=== PATIENT | female | born 1960 | race Caucasian/White ===

== ENCOUNTER 2018-02-17 12:19 | Inpatient (IN) | payer BC ==
[2018-02-17] MEDS ORDERED: diltiaZEM INJ 5 MG/ML VIAL IVP STA (12:38)
[2018-02-17] MEDS ORDERED: diltiaZEM INJ 125 MG in DEXTROSE 5% 100 ML IV STA (12:38)
[2018-02-17] MEDS ORDERED: ASPIRIN CHEW 81 MG TABLET PO STA (12:38)
[2018-02-17] MEDS ORDERED: diltiaZEM INJ 5 MG/ML VIAL ONE ×2 (12:44→21:35)
--- NOTE | 2018-02-17 12:45 | ED Physician Documentation ---
PD HPI CHEST PAIN - Stated complaint Stated Complaint: RAPID HR - Chief complaint Chief Complaint: Cardiac - History obtained from History obtained from: Patient - History of Present Illness Timing - onset: Last night Timing - onset during: Sleep Timing - duration: Hours Timing - details: Abrupt onset, Still present, Intermittant Pain level max: 7 Pain level now: 2 Quality: Pressure Location: Substernal Radiation: Jaw Improved by: Nothing Worsened by: Other (Nothing) Associated symptoms: Shortness of air, Palpitations. No: Diaphoresis, Nausea, Feeling faint / dizzy, Cough Similar symptoms before: Other (States had previous history of fast heartbeat but with only lasts for a few seconds the past years.) Recently seen: Clinic (Went to her doctor today and was sent to the emergency room.) - Additional information Additional information: 57-year-old female with history of migraine and tonsillectomy here with complaint of being awakened at 11 PM last night with fast heartbeat and skipping heartbeat associated with chest pressure at lower middle part of her chest radiating to her jaw. Patient stated she had this problem before for a few years and usually would only last a few seconds. Last week she noticed that they were more frequent and a little bit longer.Patient claimed that usually this happens when [place]. Patient stated she has never been workup for this problem before.Patient denies any trauma, travel, recent illness or immobility.Patient claims she drinks 2 cups of coffee a day. And she smokes small amount of cigarettes per day. Review of Systems Ten Systems: 10 systems reviewed and negative Constitutional: denies: Fever Cardiac: reports: Chest pain / pressure, Palpitations. denies: Pedal edema, Calf pain Respiratory: reports: Dyspnea. denies: Cough GI: denies: Abdominal Pain, Nausea, Vomiting Neurologic: denies: Generalized weakness PD PAST MEDICAL HISTORY - Past Medical History Psych: Anxiety - Past Surgical History Past Surgical History: Yes HEENT: Tonsil/Adenoidectomy - Present Medications Home Medications: Ambulatory Orders Medication Instructions Recorded Confirmed Dicyclomine [Bentyl] 10 mg PO QID #14 capsule 03/13/16 Ondansetron Odt [Zofran] 4 mg TL Q6H PRN #20 tablet 03/13/16 Rizatriptan Benzoate [Maxalt] 10 mg PO DAILY PRN 03/13/16 03/13/16 - Allergies Allergies/Adverse Reactions: Allergies Allergy/AdvReac Type Severity Reaction Status Date / Time Sulfa (Sulfonamide Allergy Rash Verified 03/13/16 22:34 Antibiotics) - Social History Does the pt smoke?: No Smoking Status: Never smoker Does the pt drink ETOH?: Yes Does the pt have substance abuse?: No - Immunizations Immunizations are current?: Yes PD ED PE NORMAL - Vitals Vital signs reviewed: Yes - General General: Alert and oriented X 3, No acute distress, Well developed/nourished - HEENT HEENT: EOMI, Moist mucous membranes, Pharynx benign - Neck Neck: Supple, no meningeal sign - Cardiac Cardiac: No murmur, No gallop, No rub, Strong equal pulses, Other (Tachycardia and irregularly irregular heart sounds. pvc monitor: Atrial fib with RVR between 144-164) - Respiratory Respiratory: No respiratory distress, Clear bilaterally - Abdomen Abdomen: Normal bowel sounds, Soft, Non tender, Non distended - Derm Derm: Normal color, Warm and dry - Extremities Extremities: No deformity, No tenderness to palpate, Normal ROM s pain, No edema - Neuro Neuro: Alert and oriented X 3, Normal speech - Psych Psych: Normal mood, Normal affect Results - Vitals Vitals: Vital Signs - 24 hr 02/17/18 02/17/18 02/17/18 12:26 12:35 12:45 Temperature 36.7 C Heart Rate 152 H 168 H Respiratory 16 15 Rate Blood Pressure 141/96 H 122/94 H Blood Pressure 122/94 H [Left] O2 Saturation 100 100 02/17/18 02/17/18 02/17/18 12:58 13:02 13:10 Temperature Heart Rate 128 H 120 H 120 H Respiratory 18 16 20 Rate Blood Pressure 118/78 111/86 H 135/75 H Blood Pressure [Left] O2 Saturation 100 100 100 02/17/18 13:34 Temperature Heart Rate 135 H Respiratory 14 Rate Blood Pressure 119/74 Blood Pressure [Left] O2 Saturation 100 Oxygen O2 Source Room air - EKG (time done) 1231 Rate: Rate (enter#) Rhythm: Atrial fibrillation [place]: Normal QRS: Normal Ischemia: Non specific changes Compare to prior EKG: Changed from prior EKG, Other (Previous EKG in February 08, 2015: Normal sinus rhythm rate of 62, normal axis, no ST elevation or depression.) - Labs Labs: Laboratory Tests 02/17/18 02/17/18 02/17/18 12:38 12:38 12:38 WBC 11.7 H RBC 4.47 Hgb 13.5 Hct 39.0 MCV 87.4 MCH 30.2 MCHC 34.5 RDW 13.3 Plt Count 258 MPV 7.5 L Neut # (Auto) 9.0 H Lymph # (Auto) 1.6 [place] # (Auto) 0.9 Eos # (Auto) 0.0 Baso # (Auto) 0.1 Absolute Nucleated RBC 0.00 Nucleated RBC % 0.0 Sodium 137 Potassium 3.8 Chloride 107 Carbon Dioxide 22 Anion Gap 8.0 BUN 13 Creatinine 0.6 Estimated GFR (MDRD) 103 Glucose 121 H Calcium 9.3 Magnesium 2.1 Total Bilirubin 0.9 AST 32 ALT 38 Alkaline Phosphatase 70 Troponin I 0.05 B-Natriuretic Peptide Total Protein 7.3 Albumin 4.5 Globulin 2.8 Albumin/Globulin Ratio 1.6 Lipase 27 TSH 02/17/18 02/17/18 12:38 12:38 WBC RBC Hgb Hct MCV MCH MCHC RDW Plt Count MPV Neut # (Auto) Lymph # (Auto) [place] # (Auto) Eos # (Auto) Baso # (Auto) Absolute Nucleated RBC Nucleated RBC % Sodium Potassium Chloride Carbon Dioxide Anion Gap BUN Creatinine Estimated GFR (MDRD) Glucose Calcium Magnesium Total Bilirubin AST ALT Alkaline Phosphatase Troponin I B-Natriuretic Peptide 306 H Total Protein Albumin Globulin Albumin/Globulin Ratio Lipase TSH 4.51 PD MEDICAL DECISION MAKING - ED course Complexity details: reviewed results, re-evaluated patient (1305 patient stated her chest discomfort is much decreased. After a bolus of diltiazem and a start of diltiazem drip at 5 mg/h patient's heart rate went down to 140s.1335Patient and family informed of test results and plan of admission which patient agreed to. pvc monitor atrial fib rate of 160. Instructed the nurse to increase the rate to 10 mg/h. Patient denies any chest pain or shortness of breath.), considered differential (New onset atrial fibrillation, hyperthyroid, electrolyte imbalance, ACS, PE), d/w patient, d/w family, d/w PMD (0906Case discussed with hospitalist Dr. Castro. He will admit the patient full admission to telemetry.), other (1444Patient being transported to the floor in no acute distress.) Departure - Departure Disposition: 66 [facility] DC/Xfer Clinical Impression: New onset atrial fibrillation Chest pain Qualifiers: Chest pain type: unspecified Qualified Code(s): R07.9 - Chest pain, unspecified Condition: Stable
[2018-02-17 12:46] LABS: BASOPHILS # (AUTO) 0.1 10^3/uL (0.0-0.1); BASOPHILS % (AUTO) 0.7 %; EOSINOPHILS % (AUTO) 0.2 %; HGB - HEMOGLOBIN 13.5 g/dL (12.0-16.0); LYMPHOCYTES # (AUTO) 1.6 10^3/uL (1.5-3.5); LYMPHOCYTES % (AUTO) 13.9 %; MEAN CORPUSCULAR HEMOGLOBIN 30.2 pg (27.0-31.0); MEAN CORPUSCULAR HGB CONC 34.5 g/dL (32.0-36.0); MEAN CORPUSCULAR VOLUME 87.4 fL (81.0-99.0); MEAN PLATELET VOLUME 7.5 fL (7.9-10.8); MONOCYTES # (AUTO) 0.9 10^3/uL (0.0-1.0); MONOCYTES % (AUTO) 7.9 %; NEUTROPHILS % (AUTO) 77.3 %; PLT - PLATELET COUNT 258 10^3/uL (130-450); RED BLOOD COUNT 4.47 10^6/uL (4.20-5.40); RED CELL DISTRIBUTION WIDTH 13.3 % (12.0-15.0); WHITE BLOOD COUNT 11.7 x10^3/uL (4.8-10.8)
[2018-02-17 13:08] LABS: ALBUMIN 4.5 g/dL (3.2-5.5); ALBUMIN/GLOBULIN RATIO 1.6 (1.0-2.2); BILIRUBIN,TOTAL 0.9 mg/dL (0.2-1.0); CALCIUM 9.3 mg/dL (8.5-10.3); CREATININE 0.6 mg/dL (0.4-1.0); MAGNESIUM 2.1 mg/dL (1.7-2.8); TOTAL PROTEIN 7.3 g/dL (6.7-8.2)
--- NOTE | 2018-02-17 13:22 | XRAY Report ---
Reason: chest pain Procedure Date: 02/17/2018 Accession Number: [id number] / [id number] Procedure: XR - Chest 1 View X-Ray CPT Code: 32452 FULL RESULT: EXAM: CHEST RADIOGRAPHY EXAM DATE: 02/17/2018 01:02 PM. CLINICAL HISTORY: Chest pain. COMPARISON: None. TECHNIQUE: 1 view. FINDINGS: Lungs/Pleura: No focal opacities evident. No pleural effusion. No pneumothorax. Mediastinum: Within exam limitations, the cardiomediastinal contour is normal. Other: None. IMPRESSION: Normal single view chest. RADIA
[2018-02-17] MEDS ORDERED: ACETAMINOPHEN 325 MG TABLET PO PRN (13:39)
[2018-02-17] MEDS ORDERED: ZOLPIDEM 5 MG TABLET PO PRN (13:39)
[2018-02-17] MEDS ORDERED: ONDANSETRON 4 MG/2 ML VIAL IVP PRN (13:39)
[2018-02-17] MEDS ORDERED: NITROGLYCERIN SL 0.4 MG TABLET SL PRN (13:39)
[2018-02-17] MEDS ORDERED: Rizatriptan Benzoate [Maxalt] 10 MG PO PRN ×2 (13:39→16:11)
[2018-02-17] MEDS ORDERED: oxyCODONE 5 MG TABLET PO PRN (13:39)
[2018-02-17] MEDS ORDERED: PROMETHAZINE 25 MG/1 ML VIAL IM PRN (13:39)
[2018-02-17] MEDS ORDERED: MORPHINE 2 MG/ML CARPUJECT IVP PRN (13:39)
[2018-02-17] MEDS ORDERED: PROCHLORPERAZINE 10 MG/2 ML VIAL IVP PRN (13:39)
--- NOTE | 2018-02-17 14:03 | HISTORY & PHYSICAL EXAMINATION ---
Chief Complaint - Chief Complaint Chief Complaint: Chest pain and shortness of breath History of Present Illness - Admitted From Admitted From:: Emergency Department - History Obtained From Records Reviewed: Yes History obtained from: Patient Exam Limitations: None - History of Present Illness HPI Comment/Other: Patient is a 57-year-old female with a past medical history significant for migraine headaches, osteoarthritis and anxiety who presented to the emergency department with a chief complaint of chest pain and shortness of breath. The patient states that over the last 8 years she will occasionally notice symptoms when she walks up a hill, up the stairs and sometimes when she is bending down to pick something up. She states that the symptoms are usually heart palpitations, chest discomfort and shortness of breath. She states in the past these symptoms last for no more than 2-3 minutes and resolve on their own. She states the worst that she is ever felt was in 2011 when she had an episode with chest pain, shortness of breath and palpitations which lasted for about 30 minutes. She states that she is never seek help from her primary care physician regarding the symptoms. She states that her father has atrial fibrillation, her mother has tachycardia and her son has Binpy-Rbqccybiu-Ohuxy syndrome. She states that on average the symptoms occur once or twice a month and again do not last longer than a couple of minutes. She states that this month she has had 6 episodes including a few when she was sleeping at night that woke her from her sleep. She states that during these episodes she was having heart palpitations, shortness of breath and chest pain. Again she states that these episodes lasted just a few minutes. She states that yesterday when she went to work she did not feel well all day. She thought that she may be getting a cold. She states that last night at 11 PM she awoke from her sleep and again was having palpitations, shortness of breath and chest pain. She states that the chest pain was a 8 out of 10 and initially located across her chest. She states later it radiated to her back and up into her jaw. She denies any diaphoresis or nausea associated with the chest pain. She does admit to shortness of breath associated with the chest pain. She states that the symptoms persisted through the night. She states that they became worse with exertion. She states that she tried to move around and this was not helping the symptoms. She states eventually she was able to get back to sleep and then woke up this morning and symptoms persisted. She states that her symptoms were worse when she lie flat and when she exerted herself. She states that she took a Advil and her migraine medication but none of this helped so she ended up going to her primary care physician's office. The patient's primary care physician then sent the patient to the emergency department as he found that her heart rate was in atrial fibrillation. She states that over the last month she has been very stressed and has been smoking 1-3 cigarettes a day which is not normal for her. Aside from this there is not been any major changes to any medications or her lifestyle. She does admit to several episodes of diarrhea this morning. The patient denies any headaches, blurred vision, runny nose, sore throat, dizziness, syncope, difficulty swallowing, increased lower extremity swelling, abdominal pain, nausea, vomiting, constipation, urinary urgency, urinary frequency, dysuria, increased lower extremity swelling, joint pain, muscle aches, back pain, neck stiffness, recent unintentional weight loss, changes in her appetite, skin changes, skin rash, polyuria, polydipsia, night sweats or any focal neurologic deficits. On presentation to the emergency department the patient was afebrile and tachycardic with heart rate of 168 blood pressure was 141/96 and she was not in any respiratory distress and saturating well on room air. The patient underwent routine lab work which revealed a mild leukocytosis of 11.7. The patient's blood chemistry was all within normal limits. The patient's BNP was mildly elevated at 306. The patient's TSH was 4.51. The patient's troponin was 0.05. The patient's EKG revealed atrial fibrillation with a rapid ventricular rate but no ST elevations noted. The patient was given 10 mg of IV diltiazem and placed on a diltiazem drip in the emergency department. Patient's heart rate initially improved to the 110s but then quickly increased back up to the 140s. The patient had to be titrated on her diltiazem drip up to 15 mg by the time she was admitted. The patient was admitted for atrial fibrillation with rapid ventricular rate to the intensive care unit on a diltiazem drip. History - Past Medical History Cardiovascular: reports: None Respiratory: reports: None Neuro: reports: Migraines Endocrine/Autoimmune: reports: None GI: reports: None [employer] WARE[employer]SE AGENT: reports: None : reports: None HEENT: reports: None Psych: reports: Anxiety Musculoskeletal: reports: Osteoarthritis Derm: reports: None MRSA Hx?: No - Past Surgical History HEENT: reports: Tonsil/Adenoidectomy - Family & Social History Family History Comment/Other: Father has atrial fibrillation. Mother has tachycardia. Son has Flwwy-Nmhqwzhry-Zdscu. Sister, brother and father have descending aortic aneurysms. No family history of cancer or coronary artery disease. Living arrangement: At home Living Situation: With family Social History Notes: The patient lives in [place] with her and daughter. She is originally from [place] and moved up to [facility] in 2011. She has 4 children. 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 She states that she smoked for a short period of time in her 20s and then did not smoke until just about a month ago when she started smoking 1-3 cigarettes a day to relieve stress. The patient states that she has been under a lot of stress recently but would not elaborate on this. She rarely drinks alcohol and rarely smokes marijuana and she denies any illicit drug use. - POLST Patient has POLST: No POLST Status: Full Code Meds/Allgy - Home Medications Home Medications: Ambulatory Orders Medication Instructions Recorded Confirmed Dicyclomine [Bentyl] 10 mg PO QID #14 capsule 03/13/16 Ondansetron Odt [Zofran] 4 mg TL Q6H PRN #20 tablet 03/13/16 Rizatriptan Benzoate [Maxalt] 10 mg PO DAILY PRN 03/13/16 03/13/16 - Allergies Allergies/Adverse Reactions: Allergies Allergy/AdvReac Type Severity Reaction Status Date / Time Sulfa (Sulfonamide Allergy Rash Verified 03/13/16 22:34 Antibiotics) tramadol Allergy Rash Verified 02/17/18 14:42 Review of Systems - Other Findings Other Findings: A comprehensive review of systems was performed the pertinent positives and negatives are stated above in the HPI and the remainder of the review of systems is negative. Prior Level of Functionality: Completely independent with her activities of daily living Exam - Vital Signs Reviewed Vital Signs: Yes Vital Signs: Vital Signs x48h Temp Pulse Resp BP BP Pulse Ox 02/17/18 13:52 129 H 17 108/87 H 100 02/17/18 13:34 135 H 14 119/74 100 02/17/18 13:10 120 H 20 135/75 H 100 02/17/18 13:02 120 H 16 111/86 H 100 02/17/18 12:58 128 H 18 118/78 100 02/17/18 12:45 122/94 H 02/17/18 12:35 168 H 15 122/94 H 100 02/17/18 12:26 36.7 C 152 H 16 141/96 H 100 - Physical Exam General Appearance: positive: Alert, Anxious Eyes Bilateral: positive: Normal inspection, PERRL, No lid inflammation, Conjunctivae nml, No scleral icterus ENT: positive: ENT inspection nml, Pharynx nml, No signs of dehydration. negative: Purulent nasal drainage, Pharyngeal erythema, Oral lesions Neck: positive: Nml inspection, Thyroid nml, No JVD, Trachea midline. negative: Lymphadenopathy (R), Lymphadenopathy (L), Carotid bruit, Tracheal deviation Respiratory: positive: Chest non-tender, No respiratory distress, Breath sounds nml. negative: Wheezes, Rales, Rhonchi Cardiovascular: positive: No murmur, No gallop, Irregularly irregular, Tachycardia Peripheral Pulses: positive: 2+ Abdomen: positive: Non-tender, No organomegaly, Nml bowel sounds, No distention Back: positive: Nml inspection. negative: CVA tenderness (R), CVA tenderness (L) Skin: positive: Color nml, No rash, Warm, Dry. negative: Diaphoresis, Pallor Extremities: positive: Non-tender, Full ROM, Nml appearance, No pedal edema Neurologic/Psychiatric: positive: Oriented x3, CN's nml (2-12), Motor nml, Sensation nml, Mood/affect nml Conclusion/Plan - Problem List (1) Atrial fibrillation with rapid ventricular response Conclusion/Plan: Patient presented with chest pain, shortness of breath and palpitations. The patient has been having the symptoms for the last 8 years 1 or 2 times a month but they have never lasted more than 30 minutes. This time symptoms persisted since 11 PM yesterday night to the time the patient arrived to the emergency department today. The patient was found to be in atrial fibrillation with a rapid ventricular rate of 160. Patient was given a dose of IV diltiazem and placed on diltiazem drip in the emergency department. Despite being on 15 mg diltiazem drip patient's heart rate continues to be in the 130s and 140s. The patient's TSH was normal and initial troponin was 0.05. Patient's EKG did not show any ST elevations. Patient is being admitted to the intensive care unit for rate control of her atrial fibrillation on a diltiazem drip. The patient's [id number] score is 1 giving her a stroke risk of 0.6 %/year. With a score of 1 the patient is low moderate risk and should consider antiplatelet or anticoagulation. Plan: Continue diltiazem drip titrate for heart rate less than 110 Start oral diltiazem 60 mg p.o. every 6 hours Serial troponins Echocardiogram Telemetry monitoring Start aspirin Patient will need to follow-up with PCP and get a referral for cardiology for her atrial fibrillation. (2) Chest pain Conclusion/Plan: Patient presented with chest pain, shortness of breath and palpitations. The patient was in atrial fibrillation with a rapid ventricular rate. Patient was having chest pain going across her chest into the back and up into her jaw. Patient symptoms worse with exertion. On presentation patient's heart rate was in the 160s with A. fib RVR. It appears likely that the patient's chest pain is related to her atrial fibrillation with rapid ventricular rate. We are concerned though that this could be acute coronary syndrome that could be causing her A. fib RVR. Patient is being admitted for her A. fib with RVR as she is currently on a diltiazem drip. Plan: Serial troponins x3 Telemetry monitoring Nitroglycerin when necessary for chest pain Aspirin Lipitor Echo Check Lipid profile Qualifiers: Chest pain type: unspecified Qualified Code(s): R07.9 - Chest pain, unspecified (3) Anxiety Conclusion/Plan: The patient has a history of anxiety. She has been under a lot of stress recently and is very anxious on presentation. We will place the patient on Ativan as needed while she is hospitalized. (4) Hx of migraines Conclusion/Plan: The patient has a history of migraine headaches and takes Maxalt at home as needed. We will continue her on Maxalt as needed while she is hospitalized. Currently the patient does not have any headache. - Lab Results Lab results reviewed: Yes Fish Bones: 02/17/18 12:38 02/17/18 12:38 Other Lab Results: Laboratory Tests 02/17/18 02/17/18 02/17/18 12:38 12:38 12:38 WBC 11.7 H RBC 4.47 Hgb 13.5 Hct 39.0 MCV 87.4 MCH 30.2 MCHC 34.5 RDW 13.3 Plt Count 258 MPV 7.5 L Neut # (Auto) 9.0 H Lymph # (Auto) 1.6 [place] # (Auto) 0.9 Eos # (Auto) 0.0 Baso # (Auto) 0.1 Absolute Nucleated RBC 0.00 Nucleated RBC % 0.0 Sodium 137 Potassium 3.8 Chloride 107 Carbon Dioxide 22 Anion Gap 8.0 BUN 13 Creatinine 0.6 Estimated GFR (MDRD) 103 Glucose 121 H Calcium 9.3 Magnesium 2.1 Total Bilirubin 0.9 AST 32 ALT 38 Alkaline Phosphatase 70 Troponin I 0.05 B-Natriuretic Peptide Total Protein 7.3 Albumin 4.5 Globulin 2.8 Albumin/Globulin Ratio 1.6 Lipase 27 TSH 02/17/18 02/17/18 12:38 12:38 WBC RBC Hgb Hct MCV MCH MCHC RDW Plt Count MPV Neut # (Auto) Lymph # (Auto) [place] # (Auto) Eos # (Auto) Baso # (Auto) Absolute Nucleated RBC Nucleated RBC % Sodium Potassium Chloride Carbon Dioxide Anion Gap BUN Creatinine Estimated GFR (MDRD) Glucose Calcium Magnesium Total Bilirubin AST ALT Alkaline Phosphatase Troponin I B-Natriuretic Peptide 306 H Total Protein Albumin Globulin Albumin/Globulin Ratio Lipase TSH 4.51 - Diagnostic Imaging Results Diagnostic Imaging Results: positive: Final report reviewed Diagnostic Imaging Results Comments: Chest x-ray Impression: Normal single view chest - EKG Results EKG Interpreted Independently: Yes EKG Findings: Atrial fibrillation with RVR. No ST elevations. Core Measures - Anticipated LOS I expect patient to be DC'd or transferred within 96 hours.: Yes - DVT/VTE - Prophylaxis VTE/DVT Prophylaxis med ordered at admit?: Yes
[2018-02-17] MEDS ORDERED: LORazepam 0.5 MG TABLET PO PRN (14:06)
[2018-02-17] MEDS: diltiaZEM INJ 125 MG in DEXTROSE 5% 100 ML IV SCH (14:25)
[2018-02-17] MEDS: SODIUM CHLORIDE FLUSH 0.9% 10 ML SYRINGE IVP PRN ×2 (15:12→18:20)
[2018-02-17] MEDS: SODIUM CHLORIDE FLUSH 0.9% 10 ML SYRINGE IVP SCH (17:13)
[2018-02-17] MEDS ORDERED: ATORVASTATIN 40 MG TABLET PO SCH (21:00)
[2018-02-17] MEDS: FAMOTIDINE 20 MG TABLET PO SCH (21:38)
[2018-02-18 05:31] LABS: BASOPHILS % (AUTO) 0.3 %; EOSINOPHILS # (AUTO) 0.1 10^3/uL (0.0-0.7); EOSINOPHILS % (AUTO) 1.4 %; LYMPHOCYTES # (AUTO) 2.2 10^3/uL (1.5-3.5); LYMPHOCYTES % (AUTO) 35.2 %; MEAN CORPUSCULAR HEMOGLOBIN 30.2 pg (27.0-31.0); MEAN CORPUSCULAR HGB CONC 33.5 g/dL (32.0-36.0); MEAN CORPUSCULAR VOLUME 90.4 fL (81.0-99.0); MEAN PLATELET VOLUME 7.4 fL (7.9-10.8); MONOCYTES # (AUTO) 0.6 10^3/uL (0.0-1.0); MONOCYTES % (AUTO) 9.1 %; NEUTROPHILS # (AUTO) 3.3 10^3/uL (1.5-6.6); PLT - PLATELET COUNT 195 10^3/uL (130-450); RED BLOOD COUNT 3.98 10^6/uL (4.20-5.40); RED CELL DISTRIBUTION WIDTH 13.5 % (12.0-15.0); WHITE BLOOD COUNT 6.2 x10^3/uL (4.8-10.8)
[2018-02-18 05:51] LABS: ALBUMIN 3.7 g/dL (3.2-5.5); ALBUMIN/GLOBULIN RATIO 1.6 (1.0-2.2); ALKALINE PHOSPHATASE 72 IU/L (42-121); ALT ALANINE AMINOTRANSFERASE 37 IU/L (10-60); AST ASPARTATE AMINOTRANSFERASE 28 IU/L (10-42); BILIRUBIN,TOTAL 0.9 mg/dL (0.2-1.0); BUN - BLOOD UREA NITROGEN 11 mg/dL (6-20); CALCIUM 8.7 mg/dL (8.5-10.3); CARBON DIOXIDE - CO2 25 mmol/L (21-32); CHLORIDE 109 mmol/L (101-111); CHOL/HDL RATIO 3.1 (<4.4); CHOLESTEROL 174 mg/dL; CREATININE 0.7 mg/dL (0.4-1.0); GFR - MDRD 86 (>89); GLUCOSE 101 mg/dL (70-100); HDL CHOLESTEROL 57 mg/dL; LDL CHOLESTEROL,CALCULATED 103 mg/dL; LDL/HDL RATIO 1.8 (<4.4); SODIUM 140 mmol/L (135-145); VLDL CHOLESTEROL 14 mg/dL
[2018-02-18] MEDS: SODIUM CHLORIDE FLUSH 0.9% 10 ML SYRINGE IVP SCH ×3 (07:32→17:44)
[2018-02-18] MEDS: FAMOTIDINE 20 MG TABLET PO SCH (08:20)
[2018-02-18] MEDS ORDERED: POLYETHYLENE GLYCOL 3350 17 GM PACKET PO SCH (09:00)
[2018-02-18] MEDS ORDERED: ASPIRIN EC 81 MG TABLET PO SCH (09:00)
[2018-02-18] MEDS ORDERED: ENOXAPARIN 40 MG/0.4 ML SYRINGE SUBQ SCH (09:00)
[2018-02-18] MEDS ORDERED: diltiaZEM CD 120 MG CAPSULE PO SCH ×2 (09:00→12:00)
[2018-02-18 15:11] VITALS: BP 114/87
--- NOTE | 2018-02-18 17:07 | Discharge Plan ---
Discharge Plan Disposition: 01 Home, Self Care Condition: Stable Prescriptions: Aspirin [Aspirin EC] 81 mg PO DAILY #90 tablet. diltiaZEM CD [Cardizem Cd] 120 mg PO DAILY #30 capsule Diet: Regular Activity Restrictions: Activity as Tolerated Shower Restrictions: No Driving Restrictions: No Instruction Topics: Diltiazem tablets, AFL/Afib Additional Instructions or Follow Up instructions: You presented to the emergency department with shortness of breath and chest pain with palpitations. He states that you have had these symptoms off and on now for 8 years but they have never lasted for more than 30 minutes until this presentation. This time you had symptoms persistent since 11 PM in the evening until the afternoon yesterday. You were found to be in atrial fibrillation and had a heart rate in the 160s. You had to be treated with IV medication to slow down your heart rate. You eventually converted from an irregular rhythm called atrial fibrillation back to your normal rhythm called sinus rhythm. In order to ensure that you now remain in a sinus rhythm and that your heart rate remains controlled we have started you on the oral form of the medication that you received through the IV call diltiazem. You should continue to take this medication as I have prescribed to you. You should also be on a baby aspirin which I have prescribed to you as well to try to reduce the risk of stroke. You will need to follow-up with your primary care physician as well as a automotive service writer for further evaluation of the atrial fibrillation. You did undergo an echocardiogram or ultrasound of the heart while you were hospitalized and this showed that you had a mildly leaky mitral valve which is insignificant. You otherwise had a very normal functioning heart. You also underwent tests to ensure that you did not have a heart attack and those tests all came back negative which is excellent. You can resume your normal activities. No Smoking: If you smoke, Please STOP! Call for help. Follow-up with: Chloe Evans PA-C [Primary Care Provider] -
--- NOTE | 2018-02-18 17:12 | DISCHARGE SUMMARY ---
Discharge Summary Admit Date: 02/17/18 Discharge Date: 02/18/18 Discharging Provider: Petros Castro MD Primary Care Provider: Chloe Evans Code Status: Attempt Resuscitation Condition at Discharge: Stable Discharge Disposition: 01 Home, Self Care - DIAGNOSES Admission Diagnoses: 1. Atrial fibrillation with rapid ventricular response 2. Chest pain 3. Anxiety 4. History of migraines Discharge Diagnoses with Status of Each Condition: 1. Atrial fibrillation with rapid ventricular response: Resolved 2. Chest pain: Resolved 3. Anxiety: Stable 4. History of migraines: Stable - HPI History of Present Illness: Patient is a 57-year-old female with a past medical history significant for migraine headaches, osteoarthritis and anxiety who presented to the emergency department with a chief complaint of chest pain and shortness of breath. The patient states that over the last 8 years she will occasionally notice symptoms when she walks up a hill, up the stairs and sometimes when she is bending down to pick something up. She states that the symptoms are usually heart palpitati ons, chest discomfort and shortness of breath. She states in the past these symptoms last for no more than 2-3 minutes and resolve on their own. She states the worst that she is ever felt was in 2011 when she had an episode with chest pain, shortness of breath and palpitations which lasted for about 30 minutes. She states that she is never seek help from her primary care physician regarding the symptoms. She states that her father has atrial fibrillation, her mother has tachycardia and her son has Qlnwc-Fzazuyuct-Edlfg syndrome. She states that on average the symptoms occur once or twice a month and again do not last longer than a couple of minutes. She states that this month she has h ad 6 episodes including a few when she was sleeping at night that woke her from her sleep. She states that during these episodes she was having heart palpitations, shortness of breath and chest pain. Again she states that these episodes lasted just a few minutes. She states that yesterday when she went to work she did not feel well all day. She thought that she may be getting a cold. She states that last night at 11 PM she awoke from her sleep and again was having palpitations, shortness of breath and chest pain. She states that the chest pain was a 8 out of 10 and initially located across her chest. She states later it radiated to her back and up into her jaw. She denies any diaphoresis or nausea associated with the chest pain. She does admit to shortness of breath associated with the chest pain. She states that the symptoms persisted through the night. She states that they became worse with exertion. She states that she tried to move around and this was not helping the symptoms. She states eventually she was able to get back to sleep and then woke up this morning and s ymptoms persisted. She states that her symptoms were worse when she lie flat and when she exerted herself. She states that she took a Advil and her migraine medication but none of this helped so she ended up going to her primary care physician's office. The patient's primary care physician then sent the patient to the emergency department as he found that her heart rate was in atrial fibrillation. She states that over the last month she has been very stressed and has been smoking 1-3 cigarettes a day which is not normal for her. Aside from this there is not been any major changes to any medications or her lifestyle. She does admit to several episodes of diarrhea this morning. The patient denies any headaches, blurred vision, runny nose, sore throat, dizziness, syncope, difficulty swallowing, increased lower extremity swelling, abdominal pain, nausea, vomiting, constipation, urinary urgency, urinary frequency, dysuria, increased lower extremity swelling, joint pain, muscle aches, back pain, neck stiffness, recent unintentional weight loss, changes in her appetite, skin changes, skin rash, polyuria, polydipsia, night sweats or any focal neurologic deficits. On presentation to the emergency department the patient was afebrile and tachycardic with heart rate of 168 blood pressure was 141/96 and she was not in any respiratory distress and saturating well on room air. The patient underwent routine lab work which revealed a mild leukocytosis of 11.7. The patient's blood chemistry was all within normal limits. The patient's BNP was mildly elevated at 306. The patient's TSH was 4.51. The patient's troponin was 0.05. The patient's EKG revealed atrial fibrillation with a rapid ventricular rate but no ST elevations noted. The patient was given 10 mg of IV diltiazem and placed on a diltiazem drip in the emergency department. Patient's heart rate initially improved to the 110s but then quickly increased back up to the 140s. The patient had to be titrated on her diltiazem drip up to 15 mg by the time she was admitted. The patient was admitted for atrial fibrillation with rapid ventricular rate to the intensive care unit on a diltiazem drip. - HOSPITAL COURSE Hospital Course: Patient presented with chest pain, shortness of breath and palpitations. Patient was found to have atrial fibrillation with a rapid ventricular rate in the 160s. Patient required admission to the intensive care unit on a diltiazem drip. Patient was titrated up to 15 mg/h on the diltiazem drip. She was also started on oral diltiazem 60 mg every 6 hours. After being in the intensive care unit for just a few hours the patient's rhythm converted to normal sinus rhythm. Her heart rate was well controlled and the next morning she was s witched to long-acting diltiazem 120 mg daily. The patient's The patient's [id number] score is 1 giving her a stroke risk of 0.6 %/year. With a score of 1 the patient is low moderate risk and should consider antiplatelet or anticoagulation. The patient was placed on aspirin and will continue aspirin lifelong. The patient did undergo an echocardiogram which showed some mild mitral regurgitation but otherwise showed a normal ejection fraction and no other significant abnormalities. The final reading on the echocardiogram however is still pending. The patient had no further chest pain and her troponins were negative. The patient's shortness of breath resolved with resolution of her atrial fibrillation. The patient was discharged home in stable condition and will be continued on diltiazem 120 g daily along with a daily aspirin. The patient will follow up with her primary care physician and should get a referral to cardiology for further evaluation and management of her atrial fibrillation. The patient also complained of ongoing stress as she was having a lot of trouble with her marriage. The patient was referred to social work and was given the appropriate resources. The patient also stated that she had started smoking 1-3 cigarettes a day and was counseled on the need to quit smoking. - ALLERGIES Allergies/Adverse Reactions: Allergies Allergy/AdvReac Type Severity Reaction Status Date / Time Sulfa (Sulfonamide Allergy Rash Verified 03/13/16 22:34 Antibiotics) tramadol Allergy Rash Verified 02/17/18 14:42 - MEDICATIONS Home Medications: Ambulatory Orders Medication Instructions Recorded Confirmed Rizatriptan Benzoate [Maxalt] 5 mg PO DAILY PRN 03/13/16 02/17/18 Ibuprofen [Advil] 200 - 400 mg PO DAILY PRN 02/17/18 02/17/18 Aspirin [Aspirin EC] 81 mg PO DAILY #90 tablet. 02/18/18 diltiaZEM CD [Cardizem Cd] 120 mg PO DAILY #30 capsule 02/18/18 - PHYSICAL EXAM AT DISCHARGE General Appearance: positive: No acute distress, Alert Eyes Bilateral: positive: Normal inspection, PERRL, EOMI, No lid inflammation, Conjunctivae nml, No scleral icterus ENT: positive: ENT inspection nml, Pharynx nml, No signs of dehydration. negative: Purulent nasal drainage, Pharyngeal erythema, Oral lesions Neck: positive: Nml inspection, Thyroid nml, No JVD, Trachea midline. negative: Thyromegaly, Lymphadenopathy (R), Lymphadenopathy (L), Stiff neck, Carotid bruit, Tracheal deviation Respiratory: positive: Chest non-tender, No respiratory distress, Breath sounds nml. negative: Wheezes, Rales, Rhonchi Cardiovascular: positive: Regular rate & rhythm, No murmur, No gallop Peripheral Pulses: positive: 2+ Abdomen: positive: Non-tender, No organomegaly, Nml bowel sounds, No distention. negative: Guarding, Rebound Back: positive: Nml inspection. negative: CVA tenderness (R), CVA tenderness (L) Skin: positive: Color nml, No rash, Warm. negative: Cyanosis, Diaphoresis, Pallor, Skin rash Extremities: positive: Non-tender, Full ROM, Nml appearance, No pedal edema Neurologic/Psychiatric: positive: Oriented x3, CN's nml (2-12), Motor nml, Sensation nml, Mood/affect nml - LABS Result Diagrams: 02/18/18 04:50 02/18/18 04:50 Other Lab Results: Laboratory Tests 02/17/18 02/17/18 02/17/18 12:38 12:38 12:38 WBC 11.7 H RBC 4.47 Hgb 13.5 Hct 39.0 MCV 87.4 MCH 30.2 MCHC 34.5 RDW 13.3 Plt Count 258 MPV 7.5 L Neut # (Auto) 9.0 H Lymph # (Auto) 1.6 [place] # (Auto) 0.9 Eos # (Auto) 0.0 Baso # (Auto) 0.1 Absolute Nucleated RBC 0.00 Nucleated RBC % 0.0 Sodium 137 Potassium 3.8 Chloride 107 Carbon Dioxide 22 Anion Gap 8.0 BUN 13 Creatinine 0.6 Estimated GFR (MDRD) 103 Glucose 121 H Calcium 9.3 Magnesium 2.1 Total Bilirubin 0.9 AST 32 ALT 38 Alkaline Phosphatase 70 Troponin I 0.05 B-Natriuretic Peptide Total Protein 7.3 Albumin 4.5 Globulin 2.8 Albumin/Globulin Ratio 1.6 Triglycerides Cholesterol LDL Cholesterol, Calc VLDL Cholesterol HDL Cholesterol LDL/HDL Ratio Cholesterol/HDL Ratio Lipase 27 TSH 02/17/18 02/17/18 02/17/18 12:38 12:38 18:32 WBC RBC Hgb Hct MCV MCH MCHC RDW Plt Count MPV Neut # (Auto) Lymph # (Auto) [place] # (Auto) Eos # (Auto) Baso # (Auto) Absolute Nucleated RBC Nucleated RBC % Sodium Potassium Chloride Carbon Dioxide Anion Gap BUN Creatinine Estimated GFR (MDRD) Glucose Calcium Magnesium Total Bilirubin AST ALT Alkaline Phosphatase Troponin I 0.05 B-Natriuretic Peptide 306 H Total Protein Albumin Globulin Albumin/Globulin Ratio Triglycerides Cholesterol LDL Cholesterol, Calc VLDL Cholesterol HDL Cholesterol LDL/HDL Ratio Cholesterol/HDL Ratio Lipase TSH 4.51 02/18/18 02/18/18 02/18/18 00:35 04:50 04:50 WBC 6.2 RBC 3.98 L Hgb 12.0 Hct 36.0 L MCV 90.4 MCH 30.2 MCHC 33.5 RDW 13.5 Plt Count 195 MPV 7.4 L Neut # (Auto) 3.3 Lymph # (Auto) 2.2 [place] # (Auto) 0.6 Eos # (Auto) 0.1 Baso # (Auto) 0.0 Absolute Nucleated RBC 0.00 Nucleated RBC % 0.0 Sodium 140 Potassium 3.8 Chloride 109 Carbon Dioxide 25 Anion Gap 6.0 BUN 11 Creatinine 0.7 Estimated GFR (MDRD) 86 L Glucose 101 H Calcium 8.7 Magnesium Total Bilirubin 0.9 AST 28 ALT 37 Alkaline Phosphatase 72 Troponin I 0.04 B-Natriuretic Peptide Total Protein 6.0 L Albumin 3.7 Globulin 2.3 Albumin/Globulin Ratio 1.6 Triglycerides 69 Cholesterol 174 LDL Cholesterol, Calc 103 VLDL Cholesterol 14 HDL Cholesterol 57 L LDL/HDL Ratio 1.8 Cholesterol/HDL Ratio 3.1 Lipase TSH 02/18/18 04:50 WBC RBC Hgb Hct MCV MCH MCHC RDW Plt Count MPV Neut # (Auto) Lymph # (Auto) [place] # (Auto) Eos # (Auto) Baso # (Auto) Absolute Nucleated RBC Nucleated RBC % Sodium Potassium Chloride Carbon Dioxide Anion Gap BUN Creatinine Estimated GFR (MDRD) Glucose Calcium Magnesium Total Bilirubin AST ALT Alkaline Phosphatase Troponin I B-Natriuretic Peptide 201 H Total Protein Albumin Globulin Albumin/Globulin Ratio Triglycerides Cholesterol LDL Cholesterol, Calc VLDL Cholesterol HDL Cholesterol LDL/HDL Ratio Cholesterol/HDL Ratio Lipase TSH - DIAGNOSTIC IMAGING Diagnostic Imaging Results: Final report reviewed Diagnostic Imaging Results Comments: Preliminary echocardiogram Results: Normal ejection fraction Mild mitral regurgitation Chest x-ray Impression: Normal single view chest - FOLLOW UP Follow Up: The patient was found to have new onset atrial fibrillation with a rapid ventricular rate. It appears that the patient has paroxysmal atrial fibrillation from her history. The patient converted to normal sinus rhythm with IV diltiazem and was continued on oral diltiazem 120 mg and continue to remain in sinus rhythm with a controlled rate. The patient was also started on aspirin. The patient underwent an echocardiogram which showed no wall motion abnormalities, normal ejection fraction and mild mitral regurgitation. The patient's troponins were negative, TSH was normal and her chest pain or shortness of breath resolved with resolution of her atrial fibrillation. The p atient will follow up with her primary care physician and needs a referral for cardiology for further management of her atrial fibrillation. - TIME SPENT Time Spent in Discharge (Minutes): 45
[2018-02-18] MEDS: diltiaZEM INJ 125 MG in DEXTROSE 5% 100 ML IV SCH (17:43)
== END 2018-02-18 18:21 | disposition home or self-care (01) | DRG 310 ==
LOC: ED 12:19 → ICU 13:39
PROVIDERS: ADMIT Internal Medicine; ATTEND Internal Medicine
DX: I48.0 Paroxysmal atrial fibrillation (principal); R07.89 Other chest pain; I34.0 Nonrheumatic mitral (valve) insufficiency; F41.9 Anxiety disorder, unspecified; G43.909 Migraine, unspecified, not intractable, without status migrainosus; Z72.0 Tobacco use; Z63.0 Problems in relationship with spouse or partner; Z82.49 Family history of ischemic heart disease and other diseases of the circulatory system; Z79.899 Other long term (current) drug therapy
CPT/HCPCS: 36415; 71045; 80053; 80061; 83690; 83721; 83735; 83880; 84443; 84484; 85025; 87640; 93005; 93306; 96365; 96375; 99284; 99285; 99406

== ENCOUNTER 2018-02-24 18:53 | Outpatient (CLI) | payer BC | END 2018-02-24 18:54 | disposition short-term general hospital (02) | LOC: EMS 18:53 | PROVIDERS: ATTEND Surgery | DX: R07.9 Chest pain, unspecified (principal); R55 Syncope and collapse | CPT/HCPCS: A0425; A0427 ==

== ENCOUNTER 2018-03-02 08:04 | Outpatient (CLI) | payer BC | END 2018-03-02 08:05 | disposition EMS.NT | LOC: EMS 08:04 | PROVIDERS: ATTEND Surgery | DX: R03.1 Nonspecific low blood-pressure reading (principal) ==

== ENCOUNTER 2018-03-02 11:24 | Outpatient (CLI) | payer BC | END 2018-03-02 11:25 | disposition critical access hospital (66) | LOC: EMS 11:24 | PROVIDERS: ATTEND Surgery | DX: R55 Syncope and collapse (principal); R10.9 Unspecified abdominal pain; R11.0 Nausea | CPT/HCPCS: A0425; A0429 ==

== ENCOUNTER 2018-03-02 11:40 | Emergency (ER) | payer BC ==
[2018-03-02] MEDS ORDERED: SODIUM CHLORIDE 0.9% 1,000 ML IV ONE (12:03)
[2018-03-02] MEDS ORDERED: ONDANSETRON 4 MG/2 ML VIAL IVP STA (12:03)
[2018-03-02 12:56] LABS: BASOPHILS % (AUTO) 0.5 %; EOSINOPHILS # (AUTO) 0.1 10^3/uL (0.0-0.7); EOSINOPHILS % (AUTO) 0.8 %; HGB - HEMOGLOBIN 13.2 g/dL (12.0-16.0); LYMPHOCYTES # (AUTO) 1.3 10^3/uL (1.5-3.5); LYMPHOCYTES % (AUTO) 13.8 %; MEAN CORPUSCULAR HEMOGLOBIN 30.1 pg (27.0-31.0); MEAN CORPUSCULAR HGB CONC 34.2 g/dL (32.0-36.0); MEAN CORPUSCULAR VOLUME 88.2 fL (81.0-99.0); MEAN PLATELET VOLUME 7.2 fL (7.9-10.8); MONOCYTES # (AUTO) 0.8 10^3/uL (0.0-1.0); MONOCYTES % (AUTO) 8.1 %; NEUTROPHILS # (AUTO) 7.2 10^3/uL (1.5-6.6); NEUTROPHILS % (AUTO) 76.8 %; PLT - PLATELET COUNT 278 10^3/uL (130-450); RED CELL DISTRIBUTION WIDTH 13.4 % (12.0-15.0); WHITE BLOOD COUNT 9.3 x10^3/uL (4.8-10.8)
[2018-03-02 13:06] LABS: ALBUMIN 3.7 g/dL (3.2-5.5); ALBUMIN/GLOBULIN RATIO 1.5 (1.0-2.2); BILIRUBIN,TOTAL 0.5 mg/dL (0.2-1.0); CALCIUM 8.8 mg/dL (8.5-10.3); CREATININE 0.7 mg/dL (0.4-1.0); TOTAL PROTEIN 6.2 g/dL (6.7-8.2)
--- NOTE | 2018-03-02 14:33 | ED Physician Documentation ---
PD HPI SYNCOPE - Stated complaint Stated Complaint: SYNCOPE / CONSTIPATION - Chief complaint Chief Complaint: Cardiac - History obtained from History obtained from: Patient - History of Present Illness Witnessed: Witnessed Duration: Seconds Preceding symptoms: Light headed Associated symptoms: No: Seizure, Incontinant of urine, Incontinant of stool, Headache, Vision changes, Chest pain, Palpitations, Diaphoresis, Dyspnea, Nausea / vomiting, Abdominal pain, None, Unknown, Other Injury occurred: None Similar symptoms before: Has not had sx before Recently seen: Admitted - Additional information Additional information: The patient is a 57-year-old female who passed out while trying to have bowel movement this morning just prior to arrival. The syncopal episode was witnessed by her daughter, who did not allow her to fall, and there were no injuries. The duration of unresponsiveness was 10 seconds or less. The patient denies any associated chest pain, shortness of breath, or palpitations. She did have cram py abdominal pain prior to onset of her symptoms, as well as nausea, without vomiting. She did have a bowel movement during that time. She denies history of similar symptoms in the past. The patient was discharged from [facility] yesterday after a five- day hospitalization for ST elevation NE. She underwent cardiac catheterization which revealed clean coronary arteries. Cardiac echo revealed hypokinetic distal ventricle, consistent with Takotsubo Syndrome. In addition she has a history of paroxysmal atrial fibrillation. Her current medications include metoprolol, atorvastatin, and aspirin. Review of Systems Constitutional: reports: Fatigue. denies: Fever Ears: denies: Tinnitus/ringing Nose: denies: Congestion Throat: denies: Sore throat Cardiac: denies: Chest pain / pressure, Palpitations Respiratory: denies: Dyspnea, Cough GI: denies: Abdominal Pain, Vomiting, Diarrhea : denies: Dysuria, Incontinent Skin: denies: Rash Musculoskeletal: denies: Back pain, Extremity swelling Neurologic: reports: Syncope. denies: Focal weakness, Numbness, Headache PD PAST MEDICAL HISTORY - Past Medical History Cardiovascular: NE, Atrial fibrillation, Other (Apical ballooning syndrome.) Respiratory: None Neuro: Migraines Endocrine/Autoimmune: None GI: None UNDER PRESSER: None : None HEENT: None Psych: Anxiety Musculoskeletal: Osteoarthritis Derm: Eczema - Past Surgical History Past Surgical History: Yes HEENT: Tonsil/Adenoidectomy - Present Medications Home Medications: Ambulatory Orders Medication Instructions Recorded Confirmed Rizatriptan Benzoate [Maxalt] 5 mg PO DAILY PRN 03/13/16 02/17/18 Ibuprofen [Advil] 200 - 400 mg PO DAILY PRN 02/17/18 02/17/18 Aspirin [Aspirin EC] 81 mg PO DAILY #90 tablet. 02/18/18 Atorvastatin Calcium 40 mg PO DAILY 03/02/18 03/02/18 Metoprolol Tartrate 12.5 mg PO BID 03/02/18 03/02/18 - Allergies Allergies/Adverse Reactions: Allergies Allergy/AdvReac Type Severity Reaction Status Date / Time Iodinated Contrast- Oral and Allergy Respiratory Verified 03/02/18 11:52 IV Dye Sulfa (Sulfonamide Allergy Rash Verified 03/02/18 11:51 Antibiotics) tramadol Allergy Rash Verified 03/02/18 11:51 - Social History Does the pt smoke?: No Smoking Status: Never smoker Does the pt drink ETOH?: Yes Does the pt have substance abuse?: No - Immunizations Immunizations are current?: Yes - POLST Patient has POLST: No POLST Status: Full Code PD ED PE NORMAL - Vitals Vital signs reviewed: Yes (blood pressure on the low end of normal, at 99/71.) - General General: Alert and oriented X 3, Well developed/nourished - HEENT HEENT: Atraumatic, EOMI, Pharynx benign - Neck Neck: No adenopathy, No JVD - Cardiac Cardiac: RRR - Respiratory Respiratory: No respiratory distress, Clear bilaterally - Abdomen Abdomen: Soft, Non tender - Back Back: No CVA TTP - Derm Derm: No rash - Extremities Extremities: No edema, No calf tenderness / cord - Neuro Neuro: Alert and oriented X 3, No motor deficit, No sensory deficit Results - Vitals Vitals: Vital Signs - 24 hr 03/02/18 03/02/18 03/02/18 11:59 12:30 13:00 Temperature 37.0 C Heart Rate 74 75 73 Respiratory 16 24 15 Rate Blood Pressure 99/71 110/76 107/75 O2 Saturation 99 97 96 03/02/18 03/02/18 03/02/18 13:51 14:00 14:37 Temperature 37.1 C Heart Rate 71 72 77 Respiratory 13 16 15 Rate Blood Pressure 103/71 106/73 108/75 O2 Saturation 97 95 98 Oxygen O2 Source Room air - EKG (time done) 11:48 Rate: Rate (enter#) (74) Rhythm: NSR Intervals: Normal DC QRS: LVH Ischemia: T wave inversion (in anterolateral leads I, aVL and V3-V6.) Compare to prior EKG: Changed from prior EKG (T wave inversions are more pronounced than on previous EKG of 02/28/2018.) Computer interpretation: Agree with computer - Labs Labs: Laboratory Tests 03/02/18 03/02/18 03/02/18 12:44 12:44 12:44 WBC 9.3 RBC 4.40 Hgb 13.2 Hct 38.8 MCV 88.2 MCH 30.1 MCHC 34.2 RDW 13.4 Plt Count 278 MPV 7.2 L Neut # (Auto) 7.2 H Lymph # (Auto) 1.3 L [place] # (Auto) 0.8 Eos # (Auto) 0.1 Baso # (Auto) 0.0 Absolute Nucleated RBC 0.00 Nucleated RBC % 0.0 Sodium 135 Potassium 3.9 Chloride 105 Carbon Dioxide 23 Anion Gap 7.0 BUN 17 Creatinine 0.7 Estimated GFR (MDRD) 86 L Glucose 107 H Calcium 8.8 Total Bilirubin 0.5 AST 35 ALT 69 H Alkaline Phosphatase 117 Troponin I 0.08 B-Natriuretic Peptide Total Protein 6.2 L Albumin 3.7 Globulin 2.5 Albumin/Globulin Ratio 1.5 Lipase 33 03/02/18 12:44 WBC RBC Hgb Hct MCV MCH MCHC RDW Plt Count MPV Neut # (Auto) Lymph # (Auto) [place] # (Auto) Eos # (Auto) Baso # (Auto) Absolute Nucleated RBC Nucleated RBC % Sodium Potassium Chloride Carbon Dioxide Anion Gap BUN Creatinine Estimated GFR (MDRD) Glucose Calcium Total Bilirubin AST ALT Alkaline Phosphatase Troponin I B-Natriuretic Peptide 1121 H Total Protein Albumin Globulin Albumin/Globulin Ratio Lipase PD MEDICAL DECISION MAKING - ED course Complexity details: reviewed old records, reviewed results, re-evaluated santiago moser, considered differential, d/w patient, d/w family, d/w sales and service consultant ED course: The patient's presentation is significant for brief syncope associated with bowel movement. There were no injuries associated with the episode. Her evaluation reveals mild volume depletion, associated with an adequate oral intake. Contributing factor includes poor cardiac ejection fraction related to recently diagnosed apical ballooning syndrome. There is no clinical evidence to suggest cardiac rhythm disturbance, seizure, or sepsis. Her recent cardiac catheterization revealed normal coronary arteries. Treatment in the emergency department included administration of normal saline 700 mL IV, and ondansetron 4 mg IV. She felt subjectively improved after that treatment, and her blood pressure improved to 108/75. I discussed her condition with Dr. Fang, her chinese instructor, who agrees with outpatient follow-up. I discussed with her and her family members the diagnosis, symptomatic treatment and outpatient follow-up, as well as potentially worrisome signs or symptoms that should prompt reevaluation in the emergency department. Departure - Departure Disposition: 01 Home, Self Care Clinical Impression: History of cardiomyopathy Syncope Qualifiers: Syncope type: unspecified Qualified Code(s): R55 - Syncope and collapse Condition: Stable Instructions: ED Fainting Unkn Cause Follow-Up: Chloe Evans PA-C [Primary Care Provider] - Nataliya Mann MD [Physician No Access] - Comments: Make sure to drink adequate fluid. Follow-up with your primary physician and with your chinese instructor as planned. Return to the emergency department if you develop recurrent episodes of passing out, or otherwise worsening symptoms. Discharge Date/Time: 03/02/18 15:02
[2018-03-02 14:38] VITALS: BP 108/75
== END 2018-03-02 15:02 | disposition home or self-care (01) ==
LOC: EDUNIT# → ED 11:40
DX: R55 Syncope and collapse (principal); I42.9 Cardiomyopathy, unspecified; I25.2 Old myocardial infarction; Z79.82 Long term (current) use of aspirin
CPT/HCPCS: 36415; 80053; 83690; 83880; 84484; 85025; 93005; 96361; 96374; 99284; 99285

== ENCOUNTER 2018-06-02 10:16 | Outpatient (CLI) | payer BC | END 2018-06-02 10:17 | disposition critical access hospital (66) | LOC: EMS 10:16 | PROVIDERS: ATTEND Surgery | DX: R00.2 Palpitations (principal) | CPT/HCPCS: A0425; A0427 ==

== ENCOUNTER 2018-06-02 10:29 | Emergency (ER) | payer BC ==
--- NOTE | 2018-06-02 11:39 | ED Physician Documentation ---
PD HPI CHEST PAIN - Stated complaint Stated Complaint: CHEST DISCOMFORT - Chief complaint Chief Complaint: Cardiac - History obtained from History obtained from: Patient - History of Present Illness Timing - onset: Yesterday Timing - onset during: Light activity Timing - details: Gradual onset, Waxing and waning (she has had feeling of palpitations in chest since yesterday, some more noted today. Has had some diarrhea the past few days with nausea. No vomiting.) Quality: Pressure. No: Tightness, Sharp Improved by: No: Rest (more noticable when rested.) Worsened by: No: Inspiration Associated symptoms: Shortness of air, Palpitations. No: Nausea, Vomiting, Feeling faint / dizzy, General Weakness, Cough Similar symptoms before: Diagnosis (palpitations. Has had feeling of some lightneaded at times. No chest pain per se.) Recently seen: Not recently seen Review of Systems Constitutional: denies: Fever, Chills, Myalgias Ears: denies: Drainage/discharge Nose: denies: Rhinorrhea / runny nose, Congestion Cardiac: reports: Palpitations. denies: Chest pain / pressure, Pedal edema, Calf pain Respiratory: denies: Dyspnea, Cough GI: reports: Nausea, Diarrhea. 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 02/18/18 Atorvastatin Calcium 40 mg PO DAILY 03/02/18 03/02/18 Metoprolol Tartrate 12.5 mg PO BID 03/02/18 03/02/18 - Allergies Allergies/Adverse Reactions: Allergies Allergy/AdvReac Type Severity Reaction Status Date / Time Iodinated Contrast- Oral and Allergy Respiratory Verified 06/02/18 10:40 IV Dye Sulfa (Sulfonamide Allergy Rash Verified 06/02/18 10:40 Antibiotics) tramadol Allergy Rash Verified 06/02/18 10:40 - Social History Does the pt smoke?: No Smoking Status: Never smoker Does the pt drink ETOH?: Yes Does the pt have substance abuse?: No - Immunizations Immunizations are current?: Yes - POLST Patient has POLST: No POLST Status: Full Code PD ED PE NORMAL - General General: Alert and oriented X 3, No acute distress, Well developed/nourished - HEENT HEENT: Atraumatic, Pharynx benign - Neck Neck: Supple, no meningeal sign, No adenopathy, Thyroid normal - Cardiac Cardiac: RRR, No murmur - Respiratory Respiratory: Clear bilaterally - Abdomen Abdomen: Normal bowel sounds, Soft, Non tender - Back Back: No CVA TTP - Derm Derm: Normal color, Warm and dry - Extremities Extremities: No tenderness to palpate, Normal ROM s pain, No edema, No calf tenderness / cord - Neuro Neuro: Alert and oriented X 3, No motor deficit, Normal speech Results - Vitals Vitals: Vital Signs - 24 hr 06/02/18 06/02/18 06/02/18 10:37 10:50 12:40 Heart Rate 83 76 72 Respiratory 11 L 14 12 Rate Blood Pressure 131/114 H 131/114 H 130/88 H O2 Saturation 100 100 99 Oxygen O2 Source Room air - EKG (time done) 10:51 Rate: Rate (enter#) (79) Rhythm: NSR, Other (frequent unifocal PVCs.) [place]: Normal Intervals: Normal [place] QRS: Normal Ischemia: Normal ST segments. No: ST elevation c/w ischemia, ST depression - Labs Labs: Laboratory Tests 06/02/18 06/02/18 06/02/18 12:45 12:45 12:45 WBC 9.2 RBC 4.62 Hgb 13.5 Hct 40.3 MCV 87.1 MCH 29.2 MCHC 33.5 RDW 13.0 Plt Count 262 MPV 7.2 L Neut # (Auto) 7.6 H Lymph # (Auto) 1.1 L [place] # (Auto) 0.4 Eos # (Auto) 0.1 Baso # (Auto) 0.0 Absolute Nucleated RBC 0.00 Nucleated RBC % 0.0 Sodium 135 Potassium 3.6 Chloride 101 Carbon Dioxide 25 Anion Gap 9.0 BUN 15 Creatinine 0.6 Estimated GFR (MDRD) 102 Glucose 105 H Calcium 9.1 Magnesium 2.4 Total Bilirubin 0.8 AST 22 ALT 25 Alkaline Phosphatase 87 Troponin I < 0.04 Total Protein 7.3 Albumin 4.4 Globulin 2.9 Albumin/Globulin Ratio 1.5 Lipase 31 PD MEDICAL DECISION MAKING - ED course Complexity details: reviewed results, re-evaluated patient, considered differential (seems like palpitations. She has had prior heart workup, including heart cath a few years ago, and was normal.), d/w patient Departure - Departure Disposition: Home, Self Care Clinical Impression: Heart palpitations Diarrhea Qualifiers: Diarrhea type: unspecified type Qualified Code(s): R19.7 - Diarrhea, unspecified Condition: Stable Record reviewed to determine appropriate education?: Yes Instructions: ED Palpitations Follow-Up: KENIA BOWDEN [Primary Care Provider] - Comments: Your basic blood tests appear normal here. No signs of heart disease and your electrolytes are good. The palpitations commonly are benign and just annoying. Stay well-hydrated. Minimize caffeine. You could take an extra magnesium supplement daily even though your blood level is normal here it still sometimes will help decrease the palpitations. Discharge Date/Time: 06/02/18 14:06
[2018-06-02] MEDS ORDERED: SODIUM CHLORIDE 0.9% 1,000 ML IV ONE (12:04)
[2018-06-02 12:50] VITALS: BP 130/88
[2018-06-02 12:53] LABS: BASOPHILS % (AUTO) 0.3 %; EOSINOPHILS # (AUTO) 0.1 10^3/uL (0.0-0.7); EOSINOPHILS % (AUTO) 0.6 %; HGB - HEMOGLOBIN 13.5 g/dL (12.0-16.0); LYMPHOCYTES # (AUTO) 1.1 10^3/uL (1.5-3.5); LYMPHOCYTES % (AUTO) 12.3 %; MEAN CORPUSCULAR HEMOGLOBIN 29.2 pg (27.0-31.0); MEAN CORPUSCULAR HGB CONC 33.5 g/dL (32.0-36.0); MEAN CORPUSCULAR VOLUME 87.1 fL (81.0-99.0); MEAN PLATELET VOLUME 7.2 fL (7.9-10.8); MONOCYTES # (AUTO) 0.4 10^3/uL (0.0-1.0); MONOCYTES % (AUTO) 4.9 %; NEUTROPHILS # (AUTO) 7.6 10^3/uL (1.5-6.6); NEUTROPHILS % (AUTO) 81.9 %; PLT - PLATELET COUNT 262 10^3/uL (130-450); RED BLOOD COUNT 4.62 10^6/uL (4.20-5.40); WHITE BLOOD COUNT 9.2 x10^3/uL (4.8-10.8)
[2018-06-02 13:06] LABS: ALBUMIN 4.4 g/dL (3.2-5.5); ALBUMIN/GLOBULIN RATIO 1.5 (1.0-2.2); BILIRUBIN,TOTAL 0.8 mg/dL (0.2-1.0); CALCIUM 9.1 mg/dL (8.5-10.3); CREATININE 0.6 mg/dL (0.4-1.0); MAGNESIUM 2.4 mg/dL (1.7-2.8); TOTAL PROTEIN 7.3 g/dL (6.7-8.2)
[2018-06-06 16:27] LABS: LEAD (B) COLLECTION SAMPLE VENOUS
== END 2018-06-02 14:06 | disposition home or self-care (01) ==
LOC: EDUNIT# → ED 10:29
DX: R19.7 Diarrhea, unspecified (principal); R00.2 Palpitations; R94.31 Abnormal electrocardiogram [ECG] [EKG]; I25.2 Old myocardial infarction; Z79.82 Long term (current) use of aspirin
CPT/HCPCS: 36415; 80053; 82175; 83655; 83690; 83735; 83825; 84484; 85025; 93005; 99283

== ENCOUNTER 2018-09-14 07:43 | Emergency (ER) | payer BC ==
[2018-09-14 08:00] VITALS: BP 130/87
[2018-09-14 08:05] LABS: BILIRUBIN,URINE NEGATIVE (NEGATIVE); CLARITY,URINE CLOUDY (CLEAR); GLUCOSE, URINE (UA) NEGATIVE (NEGATIVE); KETONES,URINE (UA) NEGATIVE (NEGATIVE); LEUKOCYTE ESTERASE, URINE LARGE (NEGATIVE); NITRITE,URINE NEGATIVE (NEGATIVE); OCCULT BLOOD,URINE LARGE (NEGATIVE); PH,URINE 6.5 PH (5.0-7.5); PROTEIN,URINE NEGATIVE (NEGATIVE); UROBILINOGEN,URINE 0.2 (NORMAL) E.U./dL (NORMAL)
[2018-09-14 08:16] LABS: WBC CLUMPS,URINE PRESENT
[2018-09-14 08:17] LABS: BACTERIA,URINE Moderate /HPF (None Seen); RBC,URINE TNTC /HPF (0-5); SQUAMOUS EPITHELIAL CELL,UR FEW Squamous (<= Few)
[2018-09-14] MEDS ORDERED: cephALEXin 250 MG CAPSULE PO STA (08:34)
--- NOTE | 2018-09-14 08:37 | ED Physician Documentation ---
PD HPI FEMALE - Stated complaint Stated Complaint: FEMALE - Chief complaint Chief Complaint: UTI - History obtained from History obtained from: Patient - History of Present Illness Timing - onset: How many days ago (few) Timing - details: Gradual onset Associated symptoms: Dysuria, Urinary frequency, Hematuria Similar symptoms before: Diagnosis (Diagnosed with UTI 2 weeks ago and treated with nitrofurantoin.) - Additional information Additional information: The patient is a 58-year-old female who presents with dysuria, frequency of urination, and pink-tinged urine that she noticed this morning. She also reports suprapubic discomfort. She reports nausea, without vomiting. She denies fever or back pain. She was diagnosed with urinary tract infection 2 weeks ago and was treated with nitrofurantoin. Her symptoms resolved temporarily, but she began having recurrent symptoms a few days ago. Review of Systems Constitutional: denies: Fever Nose: denies: Congestion Cardiac: denies: Chest pain / pressure Respiratory: denies: Cough GI: reports: Abdominal Pain (Suprapubic discomfort.), Nausea. 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 HEENT: None Psych: Anxiety Musculoskeletal: Osteoarthritis Derm: Eczema - Past Surgical History Past Surgical History: Yes HEENT: Tonsil/Adenoidectomy - Present Medications Home Medications: Ambulatory Orders Medication Instructions Recorded Confirmed Rizatriptan Benzoate [Maxalt] 5 mg PO DAILY PRN 03/13/16 02/17/18 Metoprolol Tartrate 12.5 mg PO BID 03/02/18 03/02/18 cephALEXin [Cephalexin] 500 mg PO TID #20 tablet 09/14/18 - Allergies Allergies/Adverse Reactions: Allergies Allergy/AdvReac Type Severity Reaction Status Date / Time Iodinated Contrast- Oral and Allergy Respiratory Verified 06/02/18 10:40 IV Dye Sulfa (Sulfonamide Allergy Rash Verified 06/02/18 10:40 Antibiotics) tramadol Allergy Rash Verified 06/02/18 10:40 - Social History Does the pt smoke?: No Smoking Status: Never smoker Does the pt drink ETOH?: Yes Does the pt have substance abuse?: No - Immunizations Immunizations are current?: Yes - POLST Patient has POLST: No POLST Status: Full Code PD ED PE NORMAL - Vitals Vital signs reviewed: Yes (normal) - General General: Alert and oriented X 3, Well developed/nourished - HEENT HEENT: Atraumatic - Neck Neck: No adenopathy - Cardiac Cardiac: RRR - Respiratory Respiratory: No respiratory distress, Clear bilaterally - Abdomen Abdomen: Soft, Other (Mild suprapubic tenderness palpation, without rebound or guarding.) - Back Back: No CVA TTP - Derm Derm: No rash - Extremities Extremities: No edema, No calf tenderness / cord - Neuro Neuro: Alert and oriented X 3, No motor deficit, No sensory deficit Results - Vitals Vitals: Vital Signs - 24 hr 09/14/18 07:57 Temperature 36.5 C Heart Rate 78 Respiratory 16 Rate Blood Pressure 130/87 H O2 Saturation 100 Oxygen O2 Source Room air - Labs Labs: Laboratory Tests 09/14/18 07:52 Urine Color YELLOW Urine Clarity CLOUDY Urine pH 6.5 Ur Specific [place] 1.010 Urine Protein NEGATIVE Urine Glucose (UA) NEGATIVE Urine Ketones NEGATIVE Urine Occult Blood LARGE H Urine Nitrite NEGATIVE Urine Bilirubin NEGATIVE Urine Urobilinogen 0.2 (NORMAL) Ur Leukocyte Esterase LARGE H Urine RBC TNTC H Urine WBC >25 H Urine WBC Clumps PRESENT Ur Epithelial Cells FEW Transitional Ur Squamous Epith Cells FEW Squamous Urine Bacteria Moderate H Ur Microscopic Review INDICATED Urine Culture Comments INDICATED PD MEDICAL DECISION MAKING - ED course Complexity details: reviewed old records, reviewed results, re-evaluated patient, considered differential, d/w patient ED course: The patient's presentation is significant for urinary tract infection, with positive urinalysis. Her presentation does not suggest pyelonephritis nor sepsis. I suspect her previously diagnosed UTI did not respond completely to nitrofurantoin which was previously prescribed. I do not have the results of her urine culture to confirm that. Treatment in the emergency department included administration of cephalexin 500 mg orally. She is being discharged with prescription for cephalexin. I discussed with her and her the expected course of illness, antibiotic treatment and outpatient follow-up, as well as potentially worrisome signs or symptoms that should prompt reevaluation in the emergency department. Departure - Departure Disposition: 01 Home, Self Care Clinical Impression: Urinary tract infection Qualifiers: Urinary tract infection type: acute cystitis Hematuria presence: with hematuria Qualified Code(s): N30.01 - Acute cystitis with hematuria Condition: Stable Instructions: ED UTI Cystitis Female Follow-Up: KENIA BOWDEN [Primary Care Provider] - Prescriptions: cephALEXin [Cephalexin] 500 mg PO TID #20 tablet Comments: Drink plenty of fluids, including cranberry juice. Take cephalexin 3 times daily as prescribed. Follow-up with your primary physician within 2 weeks. Call to schedule an appointment. Return to the emergency department if you develop increasing abdominal pain, fever with shaking chills, persistent vomiting, or otherwise worsening symptoms.
== END 2018-09-14 08:44 | disposition home or self-care (01) ==
LOC: ED 07:43
DX: N30.01 Acute cystitis with hematuria (principal)
CPT/HCPCS: 81001; 87086; 99283; A9270; 81003

== ENCOUNTER 2021-04-12 07:41 | Emergency (ER) | payer BC ==
[2021-04-12] MEDS ORDERED: SODIUM CHLORIDE 0.9% 1,000 ML IV STA (08:03)
[2021-04-12] MEDS ORDERED: DEXAMETHASONE 10 MG/ML VIAL IVP STA (08:03)
[2021-04-12] MEDS ORDERED: PROCHLORPERAZINE 10 MG/2 ML VIAL IVP STA (08:03)
[2021-04-12] MEDS ORDERED: KETOROLAC 30 MG/ML VIAL IVP STA (08:03)
[2021-04-12] MEDS ORDERED: diphenhydrAMINE INJ 50 MG/ML VIAL IVP STA (08:03)
--- NOTE | 2021-04-12 08:06 | ED Physician Documentation ---
PD HPI HEADACHE - Stated complaint Stated Complaint: HEAD PX/RT SIDE WEAKNESS - Chief complaint Chief Complaint: Neuro - History obtained from History obtained from: Patient - History of Present Illness Timing - onset: How many days ago (3) Timing - onset during: Rest Timing - duration: Days (3) Timing - details: Gradual onset, Still present Location: Front, Right Quality: Throbbing Associated symptoms: Stiff neck, Nausea. No: Fever, Vomiting, Weakness, Numbness, Syncope, Seizure, Eye pain, Vision changes Improved by: Rest, Dark room, Quiet, Meds Worsened by: Light, Noise, Moving Contributing factors: Other (hx of migraines) Similar symptoms before: Diagnosis (migraine) Recently seen: Not recently seen - Additional information Additional information: 60-year-old female with a history of migraines who developed a migraine that has not responded to her usual medications. Usually she is able to to resolve her headaches relatively rapidly within the hour by use of a triptan. She did not have an aura with this headache but she does have photophobia and nausea she has not had vomiting headache has been going on now for 3 days. She was only able to get some sleep after taking some Flexeril. She did have some congestion and a mild fever her was tested for COVID last month was negative she is fully immunized and boosted. Review of Systems Constitutional: reports: Fever (resolved) Eyes: reports: Photophobia. denies: Decreased vision Ears: denies: Ear pain Nose: reports: Rhinorrhea / runny nose, Congestion Throat: denies: Sore throat Cardiac: denies: Chest pain / pressure, Palpitations Respiratory: reports: Cough. denies: Dyspnea GI: reports: Nausea. 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 HEENT: None Psych: Anxiety Musculoskeletal: Osteoarthritis Derm: Eczema - Past Surgical History Past Surgical History: Yes HEENT: Tonsil/Adenoidectomy - Present Medications Home Medications: Ambulatory Orders Medication Instructions Recorded Confirmed Rizatriptan Benzoate [Maxalt] 5 mg PO DAILY PRN 03/13/16 04/12/21 - Allergies Allergies/Adverse Reactions: Allergies Allergy/AdvReac Type Severity Reaction Status Date / Time Iodinated Contrast Media Allergy Respiratory Verified 04/12/21 07:45 [Iodinated Contrast- Oral and IV Dye] Sulfa (Sulfonamide Allergy Rash Verified 04/12/21 07:45 Antibiotics) tramadol Allergy Rash Verified 04/12/21 07:45 - Social History Does the pt smoke?: No Smoking Status: Current some day smoker Does the pt drink ETOH?: Yes Does the pt have substance abuse?: No - Immunizations Immunizations are current?: Yes - POLST Patient has POLST: No POLST Status: Full Code PD ED PE NORMAL - Vitals Vital signs reviewed: Yes (Tachycardic and hypertensive mild) - General General: Alert and oriented X 3, No acute distress, Well developed/nourished - HEENT HEENT: Atraumatic, PERRL, EOMI, Ears normal, Moist mucous membranes, Pharynx benign, Dentition benign - Neck Neck: Supple, no meningeal sign, No bony TTP - Cardiac Cardiac: RRR, No murmur - Respiratory Respiratory: No respiratory distress, Clear bilaterally - Abdomen Abdomen: Normal bowel sounds, Soft, Non tender, Non distended, No organomegaly - Back Back: No CVA TTP, No spinal TTP - Derm Derm: Normal color, Warm and dry, No rash - Extremities Extremities: No deformity, No edema - Neuro Neuro: Alert and oriented X 3, oil sprayer 2-12 intact, No motor deficit, No sensory deficit, Normal speech Eye Opening: Spontaneous Motor: Obeys Commands Verbal: Oriented GCS Score: 15 - Psych Psych: Normal mood, Normal affect Results - Vitals Vitals: Vital Signs - 24 hr 04/12/21 07:45 Temperature 36.5 C Heart Rate 101 H Respiratory 18 Rate Blood Pressure 143/89 H O2 Saturation 99 Oxygen O2 Source Room air PD MEDICAL DECISION MAKING - ED course Complexity details: reviewed old records, reviewed results, re-evaluated patient, considered differential, d/w patient ED course: 60-year-old female with a 3-day history of migraine is administrated migraine cocktail consisting of a liter of saline, and 10 mg of dexamethasone, 10 mg of Compazine, 25 mg of Benadryl, 30 mg of Toradol intravenously. Departure - Departure Disposition: Home, Self Care Clinical Impression: Migraine Qualifiers: Migraine type: without aura Status migrainosus presence: without status migrainosus Intractability: not intractable Qualified Code(s): G43.009 - Migraine without aura, not intractable, without status migrainosus Condition: Stable Instructions: ED Headache Migraine Follow-Up: ZAHIRA GARCIA PA-C [Physician No Access] -
[2021-04-12] MEDS ORDERED: MORPHINE 2 MG/ML CARPUJECT IVP STA (09:36)
[2021-04-12] MEDS ORDERED: ONDANSETRON 4 MG/2 ML VIAL IVP STA (09:36)
[2021-04-12 09:53] VITALS: BP 167/82
== END 2021-04-12 10:19 | disposition home or self-care (01) ==
LOC: ED 07:41
DX: G43.009 Migraine without aura, not intractable, without status migrainosus (principal); Z20.822 Contact with and (suspected) exposure to COVID-19; I10 Essential (primary) hypertension; Z72.0 Tobacco use
CPT/HCPCS: 87635; 96374; 96375; 99283; J1200

== ENCOUNTER 2021-04-23 10:28 | Outpatient (CLI) | payer BC | END 2021-04-23 10:29 | disposition EMS.NT | LOC: EMS 10:28 | DX: F41.9 Anxiety disorder, unspecified (principal); R45.89 Other symptoms and signs involving emotional state ==

== ENCOUNTER 2021-05-14 06:34 | Outpatient (CLI) | payer BC | END 2021-05-14 06:35 | disposition critical access hospital (66) | LOC: EMS 06:34 | DX: R00.0 Tachycardia, unspecified (principal); R42 Dizziness and giddiness; R11.0 Nausea | CPT/HCPCS: A0425; A0427 ==

== ENCOUNTER 2021-05-14 06:46 | Emergency (ER) | payer BC ==
[2021-05-14 07:30] LABS: ALBUMIN 4.1 g/dL (3.2-5.5); ALBUMIN/GLOBULIN RATIO 1.5 (1.0-2.2); BILIRUBIN,TOTAL 0.5 mg/dL (0.2-1.0); CALCIUM 9.4 mg/dL (8.5-10.3); CREATININE 0.7 mg/dL (0.4-1.0); POTASSIUM 3.8 mmol/L (3.5-5.0); TOTAL PROTEIN 6.9 g/dL (6.7-8.2)
[2021-05-14 07:31] LABS: BASOPHILS % (AUTO) 0.2 %; EOSINOPHILS # (AUTO) 0.1 10^3/uL (0.0-0.7); EOSINOPHILS % (AUTO) 1.4 %; HCT - HEMATOCRIT 39.8 % (37.0-47.0); HGB - HEMOGLOBIN 13.6 g/dL (12.0-16.0); LYMPHOCYTES # (AUTO) 1.4 10^3/uL (1.5-3.5); LYMPHOCYTES % (AUTO) 21.6 %; MEAN CORPUSCULAR HEMOGLOBIN 30.2 pg (27.0-31.0); MEAN CORPUSCULAR HGB CONC 34.2 g/dL (32.0-36.0); MEAN CORPUSCULAR VOLUME 88.2 fL (81.0-99.0); MEAN PLATELET VOLUME 9.3 fL (7.9-10.8); MONOCYTES # (AUTO) 0.4 10^3/uL (0.0-1.0); MONOCYTES % (AUTO) 6.2 %; NEUTROPHILS # (AUTO) 4.4 10^3/uL (1.5-6.6); NEUTROPHILS % (AUTO) 70.1 %; PLT - PLATELET COUNT 251 10^3/uL (130-450); RED BLOOD COUNT 4.51 10^6/uL (4.20-5.40); RED CELL DISTRIBUTION WIDTH 12.7 % (12.0-15.0); WHITE BLOOD COUNT 6.3 x10^3/uL (4.8-10.8)
--- NOTE | 2021-05-14 07:38 | ED Physician Documentation ---
PD HPI DYSPNEA - Stated complaint Stated Complaint: RAPID HR/DIZZY - Chief complaint Chief Complaint: Cardiac - History obtained from History obtained from: Patient - History of Present Illness Timing - onset: Today Timing - onset during: Rest Timing - details: Abrupt onset, Now resolved (lasted about 1-2 minutes with noted HR of 130s per her fitbit watch.) Inciting event(s): Other (onset at rest without anxiety provoking situation. has had similar episodes the past month or so. Seen by PMD and Dx anxiety episodes and started on Prozac 2 weeks ago. Patient says episodes worse the past week and also trouble sleeping, she believes related to side effects of the new med.). No: Allergic rxn/anaphylaxis Improved by: Other (she feels that focusing on breathing helps when episodes occur. They last 1-2 minutes.) Worsened by: No: Exertion, Laying flat Associated symptoms: Palpitations. No: Fever, Cough, Wheezing, Chest pain / discomfort Similar symptoms before: No diagnosis Recently seen: Clinic (2 weeks ago with PCP and Rx with Prozac for treatment of presumed panic disorder. 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 HEENT: None Psych: Anxiety Musculoskeletal: Osteoarthritis Derm: Eczema - Past Surgical History Past Surgical History: Yes HEENT: Tonsil/Adenoidectomy - Present Medications Home Medications: Ambulatory Orders Medication Instructions Recorded Confirmed Rizatriptan Benzoate [Maxalt] 5 mg PO DAILY PRN 03/13/16 04/12/21 diazePAM [Valium] 5 mg PO BID #10 tablet 05/14/21 - Allergies Allergies/Adverse Reactions: Allergies Allergy/AdvReac Type Severity Reaction Status Date / Time Iodinated Contrast Media Allergy Respiratory Verified 04/12/21 07:45 [Iodinated Contrast- Oral and IV Dye] Sulfa (Sulfonamide Allergy Rash Verified 04/12/21 07:45 Antibiotics) tramadol Allergy Rash Verified 04/12/21 07:45 - Social History Does the pt smoke?: No Smoking Status: Current some day smoker Does the pt drink ETOH?: Yes Does the pt have substance abuse?: No - Immunizations Immunizations are current?: Yes - POLST Patient has POLST: No POLST Status: Full Code PD ED PE NORMAL - Vitals Vital signs reviewed: Yes - General General: Alert and oriented X 3, Well developed/nourished - HEENT HEENT: Pharynx benign - Neck Neck: Supple, no meningeal sign, No adenopathy - Cardiac Cardiac: RRR, No murmur - Respiratory Respiratory: Clear bilaterally - Abdomen Abdomen: Normal bowel sounds, Non tender, Non distended - Derm Derm: Normal color, Warm and dry - Extremities Extremities: Normal ROM s pain, No edema, No calf tenderness / cord - Neuro Neuro: Alert and oriented X 3, No motor deficit, Normal speech Results - Vitals Vitals: Vital Signs - 24 hr 05/14/21 05/14/21 05/14/21 06:51 07:05 08:55 Temperature 36.0 C L Heart Rate 74 83 68 Respiratory 23 14 Rate Blood Pressure 153/94 H 144/89 H O2 Saturation 100 98 99 Oxygen O2 Source Room air - EKG (time done) 06:48 Rate: Rate (enter#) (68) Rhythm: NSR [place]: Normal Intervals: Normal [place] QRS: Normal Ischemia: Normal ST segments. No: ST elevation c/w ischemia, ST depression - Labs Labs: Laboratory Tests 05/14/21 05/14/21 05/14/21 07:09 07:09 07:09 WBC 6.3 RBC 4.51 Hgb 13.6 Hct 39.8 MCV 88.2 MCH 30.2 MCHC 34.2 RDW 12.7 Plt Count 251 MPV 9.3 Neut # (Auto) 4.4 Lymph # (Auto) 1.4 L [place] # (Auto) 0.4 Eos # (Auto) 0.1 Baso # (Auto) 0.0 Absolute Nucleated RBC 0.00 Nucleated RBC % 0.0 Sodium 136 Potassium 3.8 Chloride 103 Carbon Dioxide 22 Anion Gap 11.0 BUN 17 Creatinine 0.7 Estimated GFR (MDRD) 85 L Glucose 125 H Calcium 9.4 Magnesium Total Bilirubin 0.5 AST 18 ALT 22 Alkaline Phosphatase 67 Troponin I High Sens 3.9 Total Protein 6.9 Albumin 4.1 Globulin 2.8 Albumin/Globulin Ratio 1.5 Lipase 34 TSH 05/14/21 05/14/21 07:09 07:09 WBC RBC Hgb Hct MCV MCH MCHC RDW Plt Count MPV Neut # (Auto) Lymph # (Auto) [place] # (Auto) Eos # (Auto) Baso # (Auto) Absolute Nucleated RBC Nucleated RBC % Sodium Potassium Chloride Carbon Dioxide Anion Gap BUN Creatinine Estimated GFR (MDRD) Glucose Calcium Magnesium 2.0 Total Bilirubin AST ALT Alkaline Phosphatase Troponin I High Sens Total Protein Albumin Globulin Albumin/Globulin Ratio Lipase TSH 5.63 H - Rads (name of study) chest xray Radiology: Prelim report reviewed (no acute process), See rad report PD MEDICAL DECISION MAKING - ED course Complexity details: reviewed old records, reviewed results (consider anxiety with episodes of symptoms. Could be having worse symptoms with the start of the Prozac. It may improve with time on it, but she is wanting to stop it. [place] also possible episodic atrial fib provoking brief symptoms. ), re-evaluated patient, considered differential (episodic feeling of fast heart rate with lightheaded and dyspnea. She states her fitbit watch says heart rate about 130s when happens. Lasts just minute or 2 at a time. ), d/w patient Departure - Departure Disposition: 01 Home, Self Care Clinical Impression: Tachycardia, Light-headed feeling Condition: Stable Record reviewed to determine appropriate education?: Yes Follow-Up: [facility] [Provider Group] Prescriptions: diazePAM [Valium] 5 mg PO BID #10 tablet Comments: Stay well-hydrated. It is unclear whether you are having anxiety type symptoms causing your heart rate to be fast. Alternatively, you could be having episodes of irregular heartbeat such as atrial fibrillation that lasts just for a minute or 2 given you the same symptoms. Follow-up with your primary care and see if they want to set up a heart monitor that you wear. This can be set up through the hospital now and can be done outpatient by your primary care provider. For now stay well-hydrated. Your potassium level is normal but on the lower and of the normal range so adding some high potassium foods for the next week or so may be helpful regarding your heart rhythm. If you feel the fluoxetine is contributing to your symptoms and not helping, you could just stop it since you have only been on it for short time. Follow-up with your primary care regarding other medications to help with anxiety as your symptoms could certainly fit for that. In the short-term you could use diazepam twice daily if needed for anxiety in general symptoms for the next day or 2 as the fluoxetine is decreasing in your system. You could use the diazepam at night for sleep as well. Perhaps avoid melatonin since it may have added to some your symptoms this evening as it can cause nightmares and anxiety episodes itself paradoxically. Alternatively could use Benadryl if needed at night for sleep. I transmitted your prescriptions to [facility] pharmacy in [place]. Discharge Date/Time: 05/14/21 09:05
[2021-05-14] MEDS ORDERED: diazePAM INJ 5 MG/ML SYRINGE IVP STA (08:06)
--- NOTE | 2021-05-14 08:26 | XRAY Report ---
PROCEDURE: Chest 1 View X-Ray INDICATIONS: Chest pain TECHNIQUE: One view of the chest was acquired. COMPARISON: 02/17/2018 FINDINGS: Surgical changes and devices: None. Lungs and pleura: No pleural effusions or pneumothorax. Lungs are clear. Mediastinum: Mediastinal contours appear normal. Borderline cardiomegaly. Bones and chest wall: No suspicious bony lesions. Overlying soft tissues appear unremarkable. IMPRESSION: Borderline cardiomegaly. No acute finding. No significant change from preliminary report. Reviewed by: Feliciano Stark MD on 05/14/2021 8:24 AM PST Approved by: Feliciano Stark MD on 05/14/2021 8:24 AM [facility] Station ID: [id number]
[2021-05-14 08:56] VITALS: BP 144/89
== END 2021-05-14 09:05 | disposition home or self-care (01) ==
LOC: EDUNIT# → ED 06:46
DX: R42 Dizziness and giddiness (principal); R00.0 Tachycardia, unspecified; I10 Essential (primary) hypertension; F17.200 Nicotine dependence, unspecified, uncomplicated
CPT/HCPCS: 36415; 80053; 83690; 83735; 84443; 84484; 85025; 93005; 96374; 99284

== ENCOUNTER 2021-06-29 10:41 | Outpatient (CLI) | payer BC ==
--- NOTE | 2021-06-30 09:03 | Mammography Report ---
BILATERAL DIGITAL SCREENING MAMMOGRAM 3D/2D: 06/29/2021 CLINICAL: Routine screening. Comparison is made to exams dated: 11/12/2014 mammogram and 07/25/2014 mammogram - [facility]. The tissue of both breasts is heterogeneously dense. This may lower the sensitivity of ma mmography. There is a developing oval asymmetry with an obscured and circumscribed margin in the left breast at 7 o'clock anterior depth. No other significant masses, calcifications, or other findings are seen in either breast. IMPRESSION: INCOMPLETE: NEEDS ADDITIONAL IMAGING EVALUATION The developing oval asymmetry in the left breast is indeterminate. Additional views with possible ul trasound are recommended. This exam was interpreted at Station ID: [id number]. NOTE: For mammograms, a report in lay terms will be sent to the patient. Approximately 15% of breast malignancies will not be visualized mammographically. In the management of a palpable breast mass, a negative mammogram must not discourage biopsy of a clinically suspicious lesion. Electronically Signed By: Madelaine hidalgo/:06/29/2021 16:50:24 ACR BI-RADS Category 0: Incomplete 3340F PARENCHYMAL PATTERN: (D) - The breast(s) demonstrate(s) heterogeneously dense fibroglandular parenchy ma. BI-RADS CATEGORY: (0) - 0 Mammo and [place] [id number] Immediate follow-up LATERALITY: (B)
== END 2021-06-29 10:42 | disposition home or self-care (01) ==
LOC: DI.N 10:41
DX: Z12.31 Encounter for screening mammogram for malignant neoplasm of breast (principal); R92.8 Other abnormal and inconclusive findings on diagnostic imaging of breast

== ENCOUNTER 2022-01-02 08:43 | Emergency (ER) | payer BC ==
[2022-01-02 08:52] VITALS: BP 141/88
--- NOTE | 2022-01-02 08:54 | ED Physician Documentation ---
PD HPI FEMALE - Stated complaint Stated Complaint: FEMALE - Chief complaint Chief Complaint: UTI - History obtained from History obtained from: Patient - History of Present Illness Timing - onset: How many days ago (2-3) Timing - duration: Days (2-3) Timing - details: Abrupt onset, Still present, Waxing and waning Associated symptoms: Dysuria, Urinary frequency. No: Fever, Back pain, Vaginal discharge Similar symptoms before: Diagnosis (not for awhile - UTI in the past) Recently seen: Not recently seen Review of Systems Constitutional: reports: Fatigue. denies: Fever, Chills Nose: reports: Congestion (several days, improving). denies: Rhinorrhea / runny nose Throat: reports: Sore throat Respiratory: denies: Dyspnea, Cough GI: denies: Abdominal Pain, Nausea, Vomiting, Diarrhea : reports: Dysuria (2-3 days), Frequency Skin: denies: Rash, Lesions PD PAST MEDICAL HISTORY - Past Medical History Cardiovascular: Hypertension, High cholesterol, [place], Atrial fibrillation, Other Respiratory: None Neuro: Migraines Endocrine/Autoimmune: None GI: None GLUER: None : None HEENT: None Psych: Anxiety Musculoskeletal: Osteoarthritis Derm: Eczema - Past Surgical History Past Surgical History: Yes HEENT: Tonsil/Adenoidectomy - Present Medications Home Medications: Ambulatory Orders Medication Instructions Recorded Confirmed Rizatriptan Benzoate [Maxalt] 5 mg PO DAILY PRN 03/13/16 04/12/21 diazePAM [Valium] 5 mg PO BID #10 tablet 05/14/21 cephALEXin [Keflex] 500 mg PO TID 5 Days #15 cap 01/02/22 - Allergies Allergies/Adverse Reactions: Allergies Allergy/AdvReac Type Severity Reaction Status Date / Time Iodinated Contrast Media Allergy Respiratory Verified 04/12/21 07:45 [Iodinated Contrast- Oral and IV Dye] Sulfa (Sulfonamide Allergy Rash Verified 04/12/21 07:45 Antibiotics) tramadol Allergy Rash Verified 04/12/21 07:45 - Social History Does the pt smoke?: No Smoking Status: Current some day smoker Does the pt drink ETOH?: Yes Does the pt have substance abuse?: No - Immunizations Immunizations are current?: Yes - POLST Patient has POLST: No POLST Status: Full Code PD ED PE NORMAL - Vitals Vital signs reviewed: Yes - General General: Alert and oriented X 3, No acute distress, Well developed/nourished - Derm Derm: Normal color, Warm and dry - Neuro Neuro: Alert and oriented X 3, No motor deficit, Normal speech Results - Vitals Vitals: Vital Signs - 24 hr 01/02/22 08:48 Temperature 36.6 C Heart Rate 75 Respiratory 17 Rate Blood Pressure 141/88 H O2 Saturation 100 Oxygen O2 Source Room air - Labs Labs: Laboratory Tests 01/02/22 08:57 Urine Color YELLOW Urine Clarity HAZY Urine pH 6.5 Ur Specific [place] 1.010 Urine Protein NEGATIVE Urine Glucose (UA) NEGATIVE Urine Ketones NEGATIVE Urine Occult Blood MODERATE H Urine Nitrite NEGATIVE Urine Bilirubin NEGATIVE Urine Urobilinogen 0.2 (NORMAL) Ur Leukocyte Esterase MODERATE H Ur Microscopic Review INDICATED Urine Culture Comments Not Reportable PD MEDICAL DECISION MAKING - ED course Complexity details: reviewed results, considered differential (symptoms c/w cystitis. UA suggestive. Can treat empirically pending cultures. ), d/w patient Departure - Departure Disposition: 01 Home, Self Care Clinical Impression: Cystitis, Dysuria Condition: Stable Record reviewed to determine appropriate education?: Yes Instructions: ED UTI Cystitis Female Prescriptions: cephALEXin [Keflex] 500 mg PO TID 5 Days #15 cap Comments: Your initial urinalysis test is suggestive of infection. This would correlate with your symptoms. We can treat this with cephalexin antibiotic 3 times daily for 5 days. Stay well-hydrated with lots of fluids. You can continue the phenazopyridine if needed for urinary discomfort. Add Tylenol or ibuprofen if needed for discomfort as well. I would anticipate improvement over the next few days. The urine culture will result in a couple of days and we will call you if we need to modify the antibiotic based on that. This is uncommon. I sent your prescription to [facility] pharmacy in [place].
[2022-01-02 09:05] LABS: BILIRUBIN,URINE NEGATIVE (NEGATIVE); GLUCOSE, URINE (UA) NEGATIVE (NEGATIVE); KETONES,URINE (UA) NEGATIVE (NEGATIVE); LEUKOCYTE ESTERASE, URINE MODERATE (NEGATIVE); NITRITE,URINE NEGATIVE (NEGATIVE); OCCULT BLOOD,URINE MODERATE (NEGATIVE); PH,URINE 6.5 PH (5.0-7.5); PROTEIN,URINE NEGATIVE (NEGATIVE); UROBILINOGEN,URINE 0.2 (NORMAL) E.U./dL (NORMAL)
[2022-01-02 09:07] LABS: CLARITY,URINE HAZY (CLEAR)
[2022-01-02] MEDS ORDERED: cephALEXin 250 MG CAPSULE PO STA (09:08)
[2022-01-02 09:28] LABS: BACTERIA,URINE Few /HPF (None Seen); SQUAMOUS EPITHELIAL CELL,UR FEW Squamous (<= Few); WBC CLUMPS,URINE PRESENT; WBC,URINE >25 /HPF (0-5)
== END 2022-01-02 09:19 | disposition home or self-care (01) ==
LOC: ED 08:43
DX: N30.90 Cystitis, unspecified without hematuria (principal); R30.0 Dysuria; I10 Essential (primary) hypertension; I48.91 Unspecified atrial fibrillation; F17.200 Nicotine dependence, unspecified, uncomplicated
CPT/HCPCS: 81001; 87077; 87086; 99282; 99283; A9270; 81003